=== PATIENT | male | born 1960 | race Caucasian/White ===

== ENCOUNTER 2020-09-25 18:42 | Emergency (ER) | payer OTHER, SELFPAY ==
[2020-09-25 19:02] VITALS: BP 129/81; PULSE 86; RESP 16; TEMP 37.1; O2SAT 96; BMI 32.1
--- NOTE | 2020-09-25 19:21 | ED.SKABFB ---
HPI - Skin/Abscess/Foreign Bdy General Chief complaint: Skin/Abscess/Foreign Body Stated complaint: forgien body in arm Time Seen by Provider: 09/25/20 19:21 History of Present Illness HPI narrative: Patient complains of large splinter in left forearm after carrying a large piece what which slid in his arm and give him a splinter, he is up-to-date on tetanus injection he has no numbness no weakness no tingling, no other injury this happened about an hour ago and pain is mild Related Data Allergies Allergy/AdvReac Type Severity Reaction Status Date / Time latex [LATEX] Allergy Severe SWELLING Verified 09/25/20 19:39 bacitracin [From NEOSPORIN] Allergy Unknown REDNESS Verified 09/25/20 19:39 AND SWELLING TO SCARS gramicidin D [From NEOSPORIN] Allergy Unknown REDNESS Verified 09/25/20 19:39 AND SWELLING TO SCARS polymyxin B [From NEOSPORIN] Allergy Unknown REDNESS Verified 09/25/20 19:39 AND SWELLING TO SCARS From AUGMENTIN Allergy Severe DIFFICULTY Uncoded 07/23/20 14:43 BREATHING From Augmentin Allergy Severe DIFFICULTY Uncoded 07/23/20 14:43 BREATHING augmentin Allergy Unknown sob Uncoded 05/03/19 00:00 bacitracin Allergy Unknown swelling Uncoded 05/03/19 00:00 From NEOSPORIN Allergy Unknown REDNESS Uncoded 07/23/20 14:43 AND SWELLING TO SCARS kiwi Allergy Unknown anaphylaxis Uncoded 05/03/19 00:00 neosporin Allergy Unknown swelling Uncoded 05/03/19 00:00 Review of Systems Review of Systems: No numbness weakness paresthesias, no fever no chills, no weakness no dizziness Yes all other systems are reviewed and are negative [facility] Past Medical History [facility] Narrative: No medical history no drugs or alcohol Social History Social History Smoking Status: Never smoker Use of substances other than those prescribed or required for medical reasons: No Advance Directives: No Advance Directives Information Provided: Yes Physical Exam Vital Signs: Vital Signs: Last Vital Signs Temp 98.7 F 09/25/20 19:02 Pulse 86 09/25/20 19:02 Resp 16 09/25/20 19:02 BP 129/81 09/25/20 19:02 Pulse Ox 96 09/25/20 19:02 Body Mass Index 32.1 Comfortable relaxed tearful cooperative no acute distress A&O x3 Head is normocephalic Neck is supple No respiratory distress The left forearm has a tiny puncture wound the entry point of splinter and the splinter is easily palpated just under the skin, all neurovascular intact distal tendon function normal, sensation normal distal Course Course Course Narrative: Left forearm puncture wound with easily palpated splinter is numbed with lidocaine of 1 cm incision is made and 2.5 cm splinter was easily removed 1 cm superficial laceration from the scalp all is cleansed and irrigated with normal saline and closed with Steri-Strips Discharge Plan Discharge Clinical Impression: Foreign body (FB) in soft tissue Patient Disposition: Home, Self-Care Additional Instructions: Splinter was removed You can remove Steri-Strips in 3 or 4 days Return to ER any time for redness, swelling, red stripe up arm, discharge from wound, any sign of infection or any worse condition
[2020-09-25] MEDS: Lidocaine HCl 1 % MPF 5 ML VIAL SUBCUT (20:08)
[2020-09-25] MEDS: Lidocaine HCl 1 % MPF 5 ML VIAL INFILTRATI (20:08)
== END 2020-09-25 20:18 | disposition home or self-care (01) ==
PROVIDERS: Emergency Provider Emergency Medicine; PCP Internal Medicine
DX: S50.852A Superficial foreign body of left forearm, initial encounter (principal); M79.632 Pain in left forearm; Y28.8XXA Contact with other sharp object, undetermined intent, initial encounter; Y93.9 Activity, unspecified; Y92.9 Unspecified place or not applicable; Y99.9 Unspecified external cause status
CPT/HCPCS: 25248; 99283; 99284

== ENCOUNTER 2020-12-09 15:40 | Outpatient (REF) | payer OTHER, SELFPAY | END 2020-12-09 15:41 | disposition home or self-care (01) | LOC: HO.LAB 15:40 | PROVIDERS: PCP Internal Medicine; Visit Provider Internal Medicine | DX: Z20.822 Contact with and (suspected) exposure to COVID-19 (principal) | CPT/HCPCS: 36415; C9803; U0003; U0005 ==

== ENCOUNTER 2020-12-14 06:08 | Outpatient (REF) | payer OTHER, SELFPAY | END 2020-12-14 06:09 | disposition home or self-care (01) | LOC: HO.LAB 06:08 | PROVIDERS: Visit Provider Internal Medicine | DX: Z20.822 Contact with and (suspected) exposure to COVID-19 (principal) | CPT/HCPCS: 36415; C9803; U0003; U0005 ==

== ENCOUNTER 2021-03-20 09:11 | Emergency (ER) | payer OTHER, SELFPAY ==
[2021-03-20 09:12] VITALS: BP 127/89; PULSE 84; RESP 16; TEMP 36.7; O2SAT 98; BMI 34.0
--- NOTE | 2021-03-20 09:35 | ED.WOUNDLAC ---
HPI - Wound/Laceration General Chief Complaint: Wound/Laceration Stated Complaint: HAND LACERATION Time Seen by Provider: 03/20/21 09:35 Source: patient Mode of arrival: ambulatory Limitations: no limitations History of Present Illness HPI narrative: 60 y/o male presenting with left palm laceration he sustained just prior to arrival from a jukebox checker. He immediately had pain and applied pressure. He reports minimal bleeding. Not on blood thinners. No weakness, numbness or tingling. No concern for FB. He is up to date on his tetanus shot. Onset (ago): minute(s) (30) Extremity Location: left: hand (palm) Body four view annotation: 1. superficial laceration Related Data Allergies Allergy/AdvReac Type Severity Reaction Status Date / Time latex [LATEX] Allergy Severe SWELLING Verified 09/25/20 19:39 bacitracin [From NEOSPORIN] Allergy Unknown REDNESS Verified 09/25/20 19:39 AND SWELLING TO SCARS gramicidin D [From NEOSPORIN] Allergy Unknown REDNESS Verified 09/25/20 19:39 AND SWELLING TO SCARS polymyxin B [From NEOSPORIN] Allergy Unknown REDNESS Verified 09/25/20 19:39 AND SWELLING TO SCARS From AUGMENTIN Allergy Severe DIFFICULTY Uncoded 07/23/20 14:43 BREATHING From Augmentin Allergy Severe DIFFICULTY Uncoded 07/23/20 14:43 BREATHING augmentin Allergy Unknown sob Uncoded 05/03/19 00:00 bacitracin Allergy Unknown swelling Uncoded 05/03/19 00:00 From NEOSPORIN Allergy Unknown REDNESS Uncoded 07/23/20 14:43 AND SWELLING TO SCARS kiwi Allergy Unknown anaphylaxis Uncoded 05/03/19 00:00 neosporin Allergy Unknown swelling Uncoded 05/03/19 00:00 Review of Systems Review of Systems: Constitutional: No Fever, No Chills Gastrointestinal: No Nausea, No Vomiting Musculoskeletal: No joint pain, No Myalgias Skin: + Skin Lesions, No rash Neuro: No Weakness, No Numbness Heme/Lymph: No Bruising PMFSH Past Medical History Medical History No known health problems Social History Social History Smoking Status: Never smoker Advance Directives: No Advance Directives Information Provided: Yes Physical Exam Vital Signs: Vital Signs: Last Vital Signs Temp 98.1 F 03/20/21 09:12 Pulse 84 03/20/21 09:12 Resp 16 03/20/21 09:12 BP 127/89 03/20/21 09:12 Pulse Ox 98 03/20/21 09:12 Body Mass Index 34.0 Appearance: Alert. Oriented X3. No acute distress. HEENT: normal inspection CVS: Normal heart rate and rhythm. Pulses normal. Respiratory: No respiratory distress. Skin: Skin warm and dry. Normal skin color. Normal skin turgor. No rashes. Extremities: left palm with 3 cm superficial linear laceration on proximal aspect, no active bleeding, margins are well approximated. no surrounding erythema, mild tenderness. NV intact distally. Neuro: Oriented X 3. No motor deficit. No sensory deficit. Course Course Course Narrative: 60 y/o male presenting with superficial laceration to left palm with jukebox checker just [employer]. Amenable to Dermabond and ster-strips. See procedure note. Patient counseled and is stable for d/c. No need for abx. Procedures Laceration Laceration 1: Site: hand Side (If applicable): left Size (cm): 3 Description: linear Depth: simple, single layer Pre-repair: irrigated extensively Skin layer closed with: other (Dermabond and Ster-strips) Critical Care Time Critical Care Time Critical Care Time: No Discharge Plan Discharge Clinical Impression: Laceration Patient Disposition: Home, Self-Care Instructions: Laceration (ED), Skin Adhesive Care (ED), Steristrips (ED) Additional Instructions: Do not get wound wet for 24 hours. After that you may briefly wash with soap and water then pat dry. Do not peel off glue to steri-strips, they will come off on their own usually in 1 week. Keep clean and covered. If you notice signs of infection including redness, increased pain or swelling, or drainage of pus come back to the ER for further evaluation. Take Tylenol or Motrin as needed for pain. Elevate you hand and ice as needed for pain/swelling. Interventions: ED Discharge Assessment Last Done: 03/20/21 09:45 Discharge Date/Time: 03/20/21 09:45
== END 2021-03-20 09:45 | disposition home or self-care (01) ==
PROVIDERS: Emergency Provider Emergency Medicine Emergency Medical Services; PCP Internal Medicine
DX: S61.412A Laceration without foreign body of left hand, initial encounter (principal); W27.8XXA Contact with other nonpowered hand tool, initial encounter; Y93.89 Activity, other specified; Y92.019 Unspecified place in single-family (private) house as the place of occurrence of the external cause; Y99.9 Unspecified external cause status
CPT/HCPCS: 12002; 99283; 99284

== ENCOUNTER 2021-07-30 06:13 | Outpatient (REF) | payer OTHER, SELFPAY ==
--- NOTE | ~2021-07-30 | XR_ITS ---
EXAMINATION: XR CERVICAL SPINE CLINICAL INFORMATION: Cervical neuropathy COMPARISON: Previous cervical spine x-ray October 2019 TECHNIQUE: 4 views of the cervical spine including swimmer's view were obtained. FINDINGS: Bone alignment is normal. No fracture or dislocation is seen. There is degenerative spondylosis and degenerative disc disease at C4-C5, C5-C6 and C6-C7. There is bilateral multilevel facet arthritis. Prevertebral soft tissues are normal. XR/XR cervical spine 3V IMPRESSION: Degenerative changes.
== END 2021-07-30 06:14 | disposition home or self-care (01) ==
LOC: HO.XRAY 06:13
PROVIDERS: PCP Internal Medicine; Visit Provider Internal Medicine
DX: G54.2 Cervical root disorders, not elsewhere classified (principal)
CPT/HCPCS: 72040

== ENCOUNTER → 2021-08-03 10:28 | Outpatient (BNVA) | payer OTHER, SELFPAY | PROVIDERS: PCP Internal Medicine; Referring Provider Internal Medicine; Visit Provider Surgery | DX: L29.0 Pruritus ani (principal); K64.8 Other hemorrhoids | CPT/HCPCS: 46600 ==

== ENCOUNTER 2021-08-25 08:55 | Outpatient (REF) | payer OTHER, SELFPAY ==
--- NOTE | ~2021-08-25 | US_ITS ---
EXAMINATION: US SOFT TISSUE EXTREMITY NON-VASCULAR, RIGHT CLINICAL INFORMATION: Right BKA, assess for seroma. COMPARISON: None TECHNIQUE: Ultrasound right lower extremity is targeted to the area of clinical concern. Grayscale imaging and color doppler are performed, targeted to the area of swelling anterior side near amputation. FINDINGS: The submitted images demonstrate subcutaneous edema in the area of soft tissue swelling. No focal loculated fluid collection. No hyperemia. US/US extremity nonvascular IMPRESSION: Subcutaneous edema in area of soft tissue swelling anterior right lower extremity near amputation. No focal loculated fluid collection or hyperemia. If clinically indicated, further imaging of the soft tissues could be performed with mri without and with contrast.
== END 2021-08-25 08:56 | disposition home or self-care (01) ==
LOC: HO.US 08:55
PROVIDERS: PCP Internal Medicine; Visit Provider Surgery
DX: T79.2XXA Traumatic secondary and recurrent hemorrhage and seroma, initial encounter (principal)
CPT/HCPCS: 76882

== ENCOUNTER 2021-09-16 12:49 | Emergency (ER) | payer OTHER, SELFPAY ==
[2021-09-16 13:11] VITALS: BP 135/86; PULSE 75; RESP 18; TEMP 36.8; O2SAT 95; BMI 36.9
--- NOTE | 2021-09-16 15:03 | ED.GENADULT ---
HPI - General Adult General Chief complaint: Wound/Laceration Stated complaint: finger injury Time Seen by Provider: 09/16/21 15:03 Source: patient Limitations: no limitations History of Present Illness HPI narrative: Patient presents to the ER complaining of left 4th finger pain after getting it jammed between a wheelbarrow in her shoulder. The nail was not totally remove a positive bleeding and pain since. Patient states his tetanus shot is up-to-date. Patient has no other complaints at this time. Patient states his hand is not broken does not want an x-ray at this time. Pain is 6/10 no other complaints at this time. Related Data Home Medications Medication Instructions Recorded Confirmed albuterol sulfate 90 mcg/actuation 1 puff PO Q4H PRN 08/03/21 aerosol inhaler celecoxib 200 mg capsule 200 mg PO DAILY 08/03/21 clonazepam 1 mg tablet 1 mg PO DAILY PRN 08/03/21 fluticasone 500 mcg-salmeterol 50 1 ea INHALATION BID 08/03/21 mcg/dose blistr powdr for inhalation (Aury Sommer) montelukast 10 mg tablet 10 mg PO DAILY 08/03/21 sildenafil 100 mg tablet mg PO 08/03/21 Previous Rx's Medication Instructions Recorded hydrocortisone-pramoxine 2.5 %-1 % 1 appl NE TID-QID PRN #30 g 08/03/21 rectal cream (Analpram-HC) menthol 0.44 %-zinc oxide 20.6 % 1 appl TOPICAL BID PRN #113 g 08/03/21 topical ointment (Calmoseptine) mupirocin 2 % topical ointment 1 appl TOPICAL BID #15 g 09/16/21 tramadol 50 mg tablet 50 mg PO BID PRN #10 tab 09/16/21 Allergies Allergy/AdvReac Type Severity Reaction Status Date / Time latex [LATEX] Allergy Severe SWELLING Verified 09/16/21 13:11 From Augmentin Allergy Severe DIFFICULTY Uncoded 08/03/21 10:38 BREATHING bacitracin Allergy Unknown swelling Uncoded 08/03/21 10:38 kiwi Allergy Unknown anaphylaxis Uncoded 08/03/21 10:38 Review of Systems Constitutional: Constitutional: Denies chills, Denies fever(s) and Denies headache(s) ENT: Denies headache(s) Cardiovascular: Cardiovascular: Denies chest pain and Denies dyspnea Respiratory: Respiratory: Denies dyspnea Gastrointestinal: Gastrointestinal: Denies nausea and Denies vomiting Musculoskeletal: Comments: Left 4th finger pain Neurologic: Denies headache(s) PMFSH Past Medical History Medical History No known health problems Surgical History History of prostate surgery History of right below knee amputation Family History Family History Father Prostate cancer Social History Social History Alcohol intake: current Alcohol intake frequency: holidays/special occasions only Advance Directives: No Advance Directives Information Provided: No Physical Exam Vital Signs: Vital Signs: Last Vital Signs Temp 98.2 F 09/16/21 13:11 Pulse 75 09/16/21 13:11 Resp 18 09/16/21 13:11 BP 135/86 09/16/21 13:11 Pulse Ox 95 09/16/21 13:11 Body Mass Index 36.9 vital signs have been reviewed as normal and appeared to be correct. Blood pressure normal. Heart rate normal. Respiration rate normal. Temperature normal. Oxygen saturation normal. Appearance: Alert. Oriented X3. No acute distress. Head: Normal external exam. Eyes: PERRLA. EOMI. Conjunctiva and sclera normal. Eyelids normal. ENT: Pharynx normal. Uvula midline. Moist mucous membranes. Neck: Soft full range of motion, no JVD Back: Full range of motion noted. Skin: Left 4th finger distal nail slight bleeding noted nails but is intact at this time Extremities: Positive tenderness left 4th distal finger sensations intact Neuro: Oriented X 3. No motor deficit. No sensory deficit. Reflexes normal. Course Course Course Narrative: Left 4th finger contusion Fracture Subungual hematoma Laceration Patient deformity is a small subungual hematoma noted benefit from whole nail patient does not want that at this time. Patient also does not want an x-ray at this time. Will plan to dress wound patient understands he may lose the nail. Patient states he has been reactions of bacitracin back intake Bactroban for wounds. Discharge Plan Discharge Clinical Impression: Subungual hematoma of fingernail Contusion of finger of left hand Qualifiers: Encounter type: initial encounter Finger: ring finger Damage to nail status: with damage Qualified Code(s): S60.142A - Contusion of left ring finger with damage to nail, initial encounter Patient Disposition: Home, Self-Care Instructions: Subungual Hematoma (ED), Contusion in Adults (ED) Additional Instructions: Keep wound clean and dry You may lose the nail Prescriptions: New mupirocin 2 % ointment 1 appl topical BID Qty: 15 RF: 0 tramadol 50 mg tablet 50 mg PO BID PRN (Reason: pain) Qty: 10 RF: 0 No Action celecoxib 200 mg capsule 200 mg PO DAILY RF: 0 fluticasone propion-salmeterol [Wixela Inhub] 500-50 mcg/dose blister with device 1 ea inhalation BID RF: 0 montelukast 10 mg tablet 10 mg PO DAILY RF: 0 sildenafil 100 mg tablet PO RF: 0 clonazepam 1 mg tablet 1 mg PO DAILY PRNRF: 0 albuterol sulfate 90 mcg/actuation HFA aerosol inhaler 1 puff PO Q4H PRNRF: 0 menthol-zinc oxide [Calmoseptine] 0.44-20.6 % ointment 1 appl topical BID PRN (Reason: skin irritation) Qty: 113 RF: 0 hydrocortisone-pramoxine [Analpram-HC] 2.5-1 % cream 1 appl NE TID-QID PRN (Reason: itching) Qty: 30 RF: 0
== END 2021-09-16 15:29 | disposition home or self-care (01) ==
PROVIDERS: Emergency Provider Emergency Medicine; PCP Internal Medicine
DX: S60.142A Contusion of left ring finger with damage to nail, initial encounter (principal); W23.0XXA Caught, crushed, jammed, or pinched between moving objects, initial encounter; Y93.9 Activity, unspecified; Y92.9 Unspecified place or not applicable; Y99.9 Unspecified external cause status
CPT/HCPCS: 99283

== ENCOUNTER 2021-10-25 10:19 | Outpatient (REF) | payer OTHER, SELFPAY ==
[2021-10-25 10:22] LABS: MANUAL DIFF FLAG NO
[2021-10-25 11:19] LABS: Basophils Percent Auto 0.4 % (0-2); Eosinophils Absolute Auto 0.3 X10*3/uL (0.0-0.4); Eosinophils Percent Auto 4.1 % (0-4); Hematocrit 45.5 % (42.0-52.0); Hemoglobin 14.9 g/dl (14.0-18.0); Imm Gran Abs Auto 0.02 X10*3/uL (0.00-0.03); Imm Gran Pct Auto 0.3 % (0.0-0.4); Lymphocytes Absolute Auto 2.2 X10*3/uL (1.2-4.9); Lymphocytes Percent Auto 30.2 % (20-40); Mean Corpuscular HGB Conc 32.7 g/dl (31.0-36.0); Mean Corpuscular Hemoglobin 30.3 pg (27.0-33.0); Mean Corpuscular Volume 92.5 fL (80.0-98.0); Mean Platelet Volume 10.8 fL (9.4-12.4); Monocytes Absolute Auto 0.4 X10*3/uL (0.1-1.2); Monocytes Percent Auto 5.9 % (2-11); Neutrophils Absolute Auto 4.3 x10*3/uL (2.0-8.3); Neutrophils Percent Auto 59.1 % (45-73); Platelet Count 244 X10*3/uL (160-400); Red Blood Count 4.92 X10*6/uL (4.60-5.80); Red Cell Distribution Width 12.5 % (11.0-16.0); White Blood Count 7.3 X10*3/uL (4.8-10.8)
[2021-10-25 11:23] LABS: Appearance Urine CLEAR; Color Urine YELLOW; Glucose Urine UA NEG (NEG); Leukocyte Esterase Urine NEG (NEG); Nitrite Urine NEG (NEG); Urine Blood NEG (NEG); Urine Ketones NEG (NEG); Urine Protein NEG (NEG-TRACE)
[2021-10-25 11:42] LABS: Alanine Aminotransferase 47 U/L (0-40); Albumin Level 4.1 g/dL (3.5-5.0); Alkaline Phosphatase 53 U/L (39-117); Anion Gap 10 (12-20); Aspartate Amino Transferase 35 U/L (5-37); Bilirubin Total 0.6 mg/dL (0.0-1.0); Blood Urea Nitrogen 13 mg/dL (9-16); Calcium 9.3 mg/dL (8.4-10.2); Carbon Dioxide 26 mmol/L (22-29); Chloride 107 mmol/L (96-108); Cholesterol 249 mg/dL; Estimated Glomerular Filt Rate > 60; Glucose Fasting 108 mg/dL (60-99); HDL Cholesterol 60 mg/dL; LDL Cholesterol Calculated 171 mg/dl; Potassium 4.3 mmol/L (3.3-5.1); Sodium 139 mmol/L (135-145); Total Protein 7.6 g/dL (6.5-8.0); Triglycerides 91 mg/dL
[2021-10-25 11:55] LABS: PSA,Total (Free>4and<10) 0.77 ng/mL (0.00-4.00); Vitamin D 25-OH Total 26.5 ng/mL (>30)
[2021-10-25 12:51] LABS: Reflex LDLD? No
== END 2021-10-25 10:20 | disposition home or self-care (01) ==
LOC: HO.LNP 10:19
PROVIDERS: PCP Internal Medicine; Visit Provider Internal Medicine
DX: Z00.00 Encounter for general adult medical examination without abnormal findings (principal); E55.9 Vitamin D deficiency, unspecified; N40.0 Benign prostatic hyperplasia without lower urinary tract symptoms
CPT/HCPCS: 80053; 80061; 81003; 82306; 84153; 85025

== ENCOUNTER 2022-10-27 11:10 | Outpatient (REF) | payer OTHER, SELFPAY ==
[2022-10-27 11:17] LABS: MANUAL DIFF FLAG NO
[2022-10-27 11:44] LABS: Basophils Absolute Auto 0.1 X10*3/uL (0.0-0.2); Basophils Percent Auto 0.8 % (0-2); Eosinophils Absolute Auto 0.4 X10*3/uL (0.0-0.4); Hemoglobin 14.7 g/dl (14.0-18.0); Imm Gran Abs Auto 0.02 X10*3/uL (0.00-0.03); Imm Gran Pct Auto 0.3 % (0.0-0.4); Lymphocytes Absolute Auto 2.2 X10*3/uL (1.2-4.9); Lymphocytes Percent Auto 34.3 % (20-40); Mean Corpuscular Hemoglobin 29.6 pg (27.0-33.0); Mean Corpuscular Volume 92.7 fL (80.0-98.0); Mean Platelet Volume 11.1 fL (9.4-12.4); Monocytes Absolute Auto 0.5 X10*3/uL (0.1-1.2); Monocytes Percent Auto 8.3 % (2-11); Neutrophils Absolute Auto 3.2 x10*3/uL (2.0-8.3); Neutrophils Percent Auto 50.3 % (45-73); Platelet Count 235 X10*3/uL (160-400); Red Blood Count 4.96 X10*6/uL (4.60-5.80); Red Cell Distribution Width 12.9 % (11.0-16.0); White Blood Count 6.3 X10*3/uL (4.8-10.8)
[2022-10-27 11:46] LABS: Appearance Urine Clear; Color Urine Yellow; Glucose Urine UA Negative (Negative); Leukocyte Esterase Urine Trace (Negative); Nitrite Urine Negative (Negative); UMIC TRIGGER UA YES; Urine Blood Negative (Negative); Urine Ketones Negative (Negative); Urine Protein Negative (Neg-Trace)
[2022-10-27 11:49] LABS: Bacteria Urine None Seen (None Seen); Hyaline Casts Urine 0-2 /LPF (0-2); RBC Urine 0-2 /HPF (0-2); Squamous Epithelial Cell Urine 0-2 /HPF (0-2); WBC Urine 0-5 /HPF (0-5)
[2022-10-27 12:14] LABS: Alanine Aminotransferase 36 U/L (0-40); Albumin Level 4.1 g/dL (3.5-5.0); Alkaline Phosphatase 53 U/L (39-117); Anion Gap 11 (12-20); Aspartate Amino Transferase 33 U/L (5-37); Bilirubin Total 0.6 mg/dL (0.0-1.0); Blood Urea Nitrogen 11 mg/dL (9-16); Calcium 9.1 mg/dL (8.4-10.2); Carbon Dioxide 29 mmol/L (22-29); Chloride 105 mmol/L (96-108); Cholesterol 237 mg/dL; Estimated Glomerular Filt Rate > 60; Glucose Fasting 104 mg/dL (60-99); HDL Cholesterol 54 mg/dL; LDL Cholesterol Calculated 165 mg/dl; PSA,Total (Free>4and<10) 1.08 ng/mL (0.00-4.00); Potassium 4.5 mmol/L (3.3-5.1); Sodium 140 mmol/L (135-145); Total Protein 7.2 g/dL (6.5-8.0); Triglycerides 94 mg/dL; Vitamin D 25-OH Total 29.4 ng/mL (>30)
== END 2022-10-27 11:11 | disposition home or self-care (01) ==
LOC: HO.LNP 11:10
PROVIDERS: Visit Provider Internal Medicine
DX: Z00.00 Encounter for general adult medical examination without abnormal findings (principal); Z12.5 Encounter for screening for malignant neoplasm of prostate; E78.00 Pure hypercholesterolemia, unspecified; E55.9 Vitamin D deficiency, unspecified; E78.2 Mixed hyperlipidemia
CPT/HCPCS: 80053; 80061; 81001; 82306; 84153; 85025

== ENCOUNTER 2023-02-06 07:30 | Day surgery (SDC) | payer OTHER, SELFPAY ==
--- NOTE | 2023-02-03 12:34 | HO.ANESPROP2 ---
HPI - Anesthesia Eval Consult details Narrative: 62yo M for Colonoscopy PMFSH Active Problems Active Problems: All Active Problems (Updated 09/17/21 @ 00:01 by Background Connie) Internal hemorrhoids without complication (Acute) Pruritus ani (Acute) Internal hemorrhoids (Acute) Seroma due to trauma (Acute) Past Medical History Medical History No known health problems Family History Family History Father Prostate cancer Surgical History Surgical History History of prostate surgery History of right below knee amputation Social History Social History Alcohol intake: current Alcohol intake frequency: does not drink Patient Tobacco Use Status: Former Tobacco user Are you DNR?: No Advance Directives: No Advance Directives Information Provided: Yes Nutrition Risks: No Nutritional Risk Meds Allergies Allergy/AdvReac Type Severity Reaction Status Date / Time latex [LATEX] Allergy Severe SWELLING Verified 09/16/21 13:11 From Augmentin Allergy Severe DIFFICULTY Uncoded 08/03/21 10:38 BREATHING bacitracin Allergy Unknown swelling Uncoded 08/03/21 10:38 kiwi Allergy Unknown anaphylaxis Uncoded 08/03/21 10:38 Home Medications Medication Instructions Recorded Confirmed Last Taken Type albuterol sulfate 90 mcg/actuation 1 puff PO Q4H PRN 08/03/21 Unknown History aerosol inhaler celecoxib 200 mg capsule 200 mg PO DAILY 08/03/21 01/30/23 History clonazepam 1 mg tablet 1 mg PO DAILY PRN 08/03/21 Unknown History fluticasone 500 mcg-salmeterol 50 1 ea inhalation BID 08/03/21 Unknown History mcg/dose blistr powdr for inhalation (Wixela Inhub) montelukast 10 mg tablet 10 mg PO DAILY 08/03/21 Unknown History sildenafil 100 mg tablet mg PO 08/03/21 Unknown History Exam Exam Date and Time: February 03, 2023 1234 Pertinent Lab Results Pertinent Lab Results: Laboratory Tests 10/27/22 10/27/22 Unknown Unknown WBC 6.3 Hgb 14.7 Hct 46.0 Plt Count 235 Sodium 140 Potassium 4.5 Chloride 105 Carbon Dioxide 29 BUN 11 Creatinine 0.77 Assessment and Plan Assessment Anesthesia Assessment: Chart Reviewed
[2023-02-06 07:03] VITALS: BMI 37.8
[2023-02-06 07:35] VITALS: BP 151/91; PULSE 74; RESP 20; TEMP 36.9; O2SAT 97
[2023-02-06] MEDS: Lactated Ringers 1,000 ML 100 ML IVCONT (07:58)
--- NOTE | 2023-02-06 07:58 | HO.ANESPROP2 ---
[facility] Active Problems Active Problems: All Active Problems (Updated 09/17/21 @ 00:01 by Background Piporuy) Internal hemorrhoids without complication (Acute) Pruritus ani (Acute) Internal hemorrhoids (Acute) Seroma due to trauma (Acute) asthma obesity Past Medical History Medical History No known health problems Family History Family History Father Prostate cancer Surgical History Surgical History History of prostate surgery History of right below knee amputation History of Problems with Anesthesia: No Social History Social History Alcohol intake: current Alcohol intake frequency: does not drink Patient Tobacco Use Status: Former Tobacco user Are you DNR?: No Advance Directives: No Advance Directives Information Provided: Yes Nutrition Risks: No Nutritional Risk Meds Allergies Allergy/AdvReac Type Severity Reaction Status Date / Time latex [LATEX] Allergy Severe SWELLING Verified 09/16/21 13:11 From Augmentin Allergy Severe DIFFICULTY Uncoded 08/03/21 10:38 BREATHING bacitracin Allergy Unknown swelling Uncoded 08/03/21 10:38 kiwi Allergy Unknown anaphylaxis Uncoded 08/03/21 10:38 Active Medications: Current Medications Lactated Ringer's (Lr) 1,000 mls @ 100 mls/hr IVCONT .Q10H KRISHAN Sodium Biphosphate/Sodium Phosphate (Sodium Phosphate,Rhea-Dibasic 133 Ml Enema) 133 ml TN ONCE PRN PRN Reason: Poor Colonoscopy Prep Results Home Medications Medication Instructions Recorded Confirmed Last Taken Type albuterol sulfate 90 mcg/actuation 1 puff PO Q4H PRN 08/03/21 Unknown History aerosol inhaler celecoxib 200 mg capsule 200 mg PO DAILY 08/03/21 01/30/23 History clonazepam 1 mg tablet 1 mg PO DAILY PRN 08/03/21 Unknown History fluticasone 500 mcg-salmeterol 50 1 ea inhalation BID 08/03/21 Unknown History mcg/dose blistr powdr for inhalation (Aury Inhanil) montelukast 10 mg tablet 10 mg PO DAILY 08/03/21 Unknown History sildenafil 100 mg tablet mg PO 08/03/21 Unknown History Exam Exam Date and Time: February 06, 2023 5072 Height,Weight and Vital Signs: Height 5 ft 9.5 in Weight 117.934 kg Last Vital Signs Temp 98.4 F 02/06/23 07:35 Pulse 74 02/06/23 07:35 Resp 20 02/06/23 07:35 BP 151/91 H 02/06/23 07:35 Pulse Ox 97 02/06/23 07:35 O2 Del Method Room Air 02/06/23 07:35 Airway Mallampati Class: III TM Dist: >3cm Neck ROM: Full Loose/Missing/Broken Teeth: No Heart: RRR Lungs: wheezing throughout Assessment and Plan Final Anesthetic Review History of Problems with Anesthesia: No NPO: Yes ASA Class: III Final Preanesthetic Review: Meds/Allgs Chart Reviewed, Consent Obtained/Reviewed and Anes Risks/Benef Reviewed Patient Risk: Intermediate Procedure Risk: Low Anesthetic Plan Anesthetic Plan: MAC: Disposition: Standard PACU
[2023-02-06 08:43] VITALS: PULSE 66; RESP 18; O2SAT 99
[2023-02-06 09:40] VITALS: BP 122/78; PULSE 84; RESP 18; TEMP 36.2; O2SAT 97
--- NOTE | 2023-02-06 09:43 | P.BOP_ITS ---
Brief Operative Note Date of Service: 02/06/23 Pre-op diagnosis: Screening Post-op diagnosis: other (Colon polyps) Procedure: Colonoscopy to the cecum and TI with hot snare polypectomy x 2 Surgeon: Simone Gupta Anesthesia: MAC Was an Adaptive Physical Education Specialist used for this Procedure?: No Estimated blood loss (mL): 0 Pathology: other (A, Polyp at 50cm B. Polyp at 30cm) Condition: stable Disposition: PACU
[2023-02-06 09:55] VITALS: BP 118/68; PULSE 70; RESP 16; TEMP 36.2; O2SAT 97
--- NOTE | 2023-02-06 12:03 | OP_ITS ---
DATE OF SERVICE: 02/06/2023 SURGEON: Simone Gupta MD PREOPERATIVE DIAGNOSIS: POSTOPERATIVE DIAGNOSIS: PROCEDURE PERFORMED: Colonoscopy to the cecum and terminal ileum with hot snare polypectomy x 2. ESTIMATED BLOOD LOSS: COMPLICATIONS: ANESTHESIA: Monitored anesthesia care. ASSISTANTS: SPECIMENS: PREOPERATIVE DIAGNOSES: Personal history of tubular adenomas of the colon and colorectal cancer screening. POSTOPERATIVE DIAGNOSES: Personal history of tubular adenomas of the colon and colorectal cancer screening, colon polyps, diverticulosis, and internal hemorrhoids. INDICATION: The patient presents for followup of personal history of tubular adenomas of the colon and need for colorectal cancer screening. Full consent has been obtained from him for this, including risks of bleeding and perforation. DESCRIPTION OF PROCEDURE: The patient was placed in the left lateral decubitus position. The digital rectal exam revealed no abnormalities. The Olympus video pediatric colonoscope was entered into the rectum and advanced easily to the cecum. Once in the cecum, I did identify normal appearing pouch with appendiceal orifice and a normal-appearing ileocecal valve. The terminal ileum was cannulated and appeared normal. The scope was withdrawn back in the colon. The entire cecum and ileocecal valve appeared normal. The scope was slowly withdrawn assessing all mucosal surfaces carefully. Perforation was excellent. At 50 cm and 30 cm, there were flat approximately 10 mm polyps which were each removed by hot snare polypectomy, and recovered by suction. The polypectomy sites appeared clean, without any sign of residual polyp nor bleeding. I did not visualize any other polyps, colitis, nor angiodysplasia. There was a mild amount of sigmoid diverticulosis. In the rectum, the scope was retroflexed visualizing internal hemorrhoids, but no other pathology. The rectal mucosa appeared normal. The scope was straightened and withdrawn from the patient. He tolerated the procedure well and was returned to the recovery area in stable condition. IMPRESSION: 1. Colon polyps. 2. Diverticulosis. 3. Internal hemorrhoids. PLAN: The results of the pathology will be checked. I would recommend a repeat colonoscopy in 5 years. He was advised not to use any aspirin or NSAIDS for 1 week. MD JO Bermeo/ARIANNA / [id number] [id number]
== END 2023-02-06 10:25 | disposition home or self-care (01) ==
PROVIDERS: PCP Internal Medicine; Visit Provider Internal Medicine
PROC: 0DJD8ZZ Inspection of Lower Intestinal Tract, Via Natural or Artificial Opening Endoscopic (ICD-10-PCS; CPT 45378; principal; 2023-02-06 08:40)
DX: Z12.11 Encounter for screening for malignant neoplasm of colon (principal); Z86.010 Personal history of colon polyps; K63.5 Polyp of colon; K57.30 Diverticulosis of large intestine without perforation or abscess without bleeding; K64.8 Other hemorrhoids; N40.0 Benign prostatic hyperplasia without lower urinary tract symptoms; J45.909 Unspecified asthma, uncomplicated; Z79.51 Long term (current) use of inhaled steroids; Z79.899 Other long term (current) drug therapy; Z89.511 Acquired absence of right leg below knee
CPT/HCPCS: 45385; 88305; 94640

== ENCOUNTER 2023-12-14 10:51 | Outpatient (REF) | payer OTHER, SELFPAY ==
[2023-12-14 10:55] LABS: MANUAL DIFF FLAG NO
[2023-12-14 11:00] LABS: Appearance Urine Clear; Basophils Percent Auto 0.5 % (0-2); Color Urine Yellow; Eosinophils Absolute Auto 0.2 X10*3/uL (0.0-0.4); Eosinophils Percent Auto 3.2 % (0-4); Glucose Urine UA Negative (Negative); Hematocrit 43.4 % (42.0-52.0); Hemoglobin 14.4 g/dl (14.0-18.0); Imm Gran Abs Auto 0.01 X10*3/uL (0.00-0.03); Imm Gran Pct Auto 0.2 % (0.0-0.4); Leukocyte Esterase Urine Trace (Negative); Lymphocytes Absolute Auto 2.3 X10*3/uL (1.2-4.9); Lymphocytes Percent Auto 35.2 % (20-40); Mean Corpuscular HGB Conc 33.2 g/dl (31.0-36.0); Mean Corpuscular Hemoglobin 31.6 pg (27.0-33.0); Mean Corpuscular Volume 95.4 fL (80.0-98.0); Mean Platelet Volume 11.2 fL (9.4-12.4); Monocytes Absolute Auto 0.5 X10*3/uL (0.1-1.2); Monocytes Percent Auto 6.9 % (2-11); Neutrophils Absolute Auto 3.5 x10*3/uL (2.0-8.3); Nitrite Urine Negative (Negative); PH 5.5 (5.0-9.0); Platelet Count 203 X10*3/uL (160-400); Red Blood Count 4.55 X10*6/uL (4.60-5.80); Red Cell Distribution Width 13.3 % (11.0-16.0); UMIC TRIGGER UACC YES; Urine Blood Negative (Negative); Urine Ketones Negative (Negative); Urine Protein Negative (Neg-Trace); White Blood Count 6.5 X10*3/uL (4.8-10.8)
[2023-12-14 11:03] LABS: Bacteria Urine None Seen (None Seen); Hyaline Casts Urine 0-2 /LPF (0-2); RBC Urine 0-2 /HPF (0-2); Squamous Epithelial Cell Urine 0-2 /HPF (0-2); WBC Urine 0-5 /HPF (0-5)
[2023-12-14 11:10] LABS: Alanine Aminotransferase 28 U/L (0-40); Albumin Level 3.9 g/dL (3.5-5.0); Alkaline Phosphatase 47 U/L (39-117); Anion Gap 10 (12-20); Aspartate Amino Transferase 20 U/L (5-37); Bilirubin Total 0.5 mg/dL (0.0-1.0); Blood Urea Nitrogen 14 mg/dL (9-16); Calcium 9.2 mg/dL (8.4-10.2); Carbon Dioxide 30 mmol/L (22-29); Chloride 103 mmol/L (96-108); Cholesterol 230 mg/dL (<200); Estimated Glomerular Filt Rate > 60; Glucose Fasting 92 mg/dL (60-99); HDL Cholesterol 64 mg/dL (>40); LDL Cholesterol Calculated 153 mg/dL (<100); Potassium 3.9 mmol/L (3.3-5.1); Sodium 139 mmol/L (135-145); Total Protein 7.1 g/dL (6.5-8.0); Triglycerides 67 mg/dL (<150)
[2023-12-14 11:31] LABS: PSA,Total (Free>4and<10) 0.81 ng/mL (0.00-4.00)
[2023-12-19 16:33] LABS: Vitamin D 25-OH, D2 <4 ng/mL; Vitamin D 25-OH, D3 22 ng/mL; Vitamin D 25-OH, Total 22 ng/mL (30-100)
== END 2023-12-14 10:52 | disposition home or self-care (01) ==
LOC: HO.LNP 10:51
PROVIDERS: Visit Provider Internal Medicine
DX: Z00.00 Encounter for general adult medical examination without abnormal findings (principal); Z12.5 Encounter for screening for malignant neoplasm of prostate; N40.0 Benign prostatic hyperplasia without lower urinary tract symptoms; E55.9 Vitamin D deficiency, unspecified; E78.00 Pure hypercholesterolemia, unspecified
CPT/HCPCS: 80053; 80061; 81001; 82306; 84153; 85025

== ENCOUNTER → 2024-02-22 14:29 | Outpatient (BNVA) | payer OTHER, SELFPAY | PROVIDERS: PCP Internal Medicine; Visit Provider Physician Assistant Surgical ==

== ENCOUNTER 2024-06-20 10:58 | Outpatient (REF) | payer OTHER, SELFPAY ==
[2024-06-20 11:47] LABS: Cholesterol 226 mg/dL (<200); HDL Cholesterol 57 mg/dL (>40); LDL Cholesterol Calculated 144 mg/dL (<100); Triglycerides 128 mg/dL (<150)
== END 2024-06-20 10:59 | disposition home or self-care (01) ==
LOC: HO.LNP 10:58
PROVIDERS: Visit Provider Internal Medicine
DX: E78.00 Pure hypercholesterolemia, unspecified (principal)
CPT/HCPCS: 80061

== ENCOUNTER 2024-12-17 10:55 | Outpatient (REF) | payer OTHER, SELFPAY ==
[2024-12-17 10:58] LABS: MANUAL DIFF FLAG NO
[2024-12-17 11:28] LABS: Appearance Urine Clear; Color Urine Yellow; Glucose Urine UA Negative (Negative); Leukocyte Esterase Urine Negative (Negative); Nitrite Urine Negative (Negative); Urine Blood Negative (Negative); Urine Ketones Negative (Negative); Urine Protein Negative (Neg-Trace)
[2024-12-17 11:31] LABS: Basophils Absolute Auto 0.1 X10*3/uL (0.0-0.2); Basophils Percent Auto 0.7 % (0-2); Eosinophils Absolute Auto 0.4 X10*3/uL (0.0-0.4); Eosinophils Percent Auto 5.2 % (0-4); Hematocrit 46.8 % (42.0-52.0); Hemoglobin 15.1 g/dl (14.0-18.0); Imm Gran Abs Auto 0.02 X10*3/uL (0.00-0.03); Imm Gran Pct Auto 0.3 % (0.0-0.4); Lymphocytes Absolute Auto 2.5 X10*3/uL (1.2-4.9); Lymphocytes Percent Auto 35.9 % (20-40); Mean Corpuscular HGB Conc 32.3 g/dl (31.0-36.0); Mean Corpuscular Hemoglobin 30.1 pg (27.0-33.0); Mean Corpuscular Volume 93.4 fL (80.0-98.0); Mean Platelet Volume 10.8 fL (9.4-12.4); Monocytes Absolute Auto 0.6 X10*3/uL (0.1-1.2); Neutrophils Absolute Auto 3.5 x10*3/uL (2.0-8.3); Neutrophils Percent Auto 49.9 % (45-73); Platelet Count 263 X10*3/uL (160-400); Red Blood Count 5.01 X10*6/uL (4.60-5.80); Red Cell Distribution Width 13.3 % (11.0-16.0)
[2024-12-17 11:36] LABS: Bacteria Urine None Seen (None Seen); Hyaline Casts Urine 0-2 /LPF (0-2); RBC Urine 0-2 /HPF (0-2); Squamous Epithelial Cell Urine 0-2 /HPF (0-2); WBC Urine 0-5 /HPF (0-5)
[2024-12-17 11:56] LABS: PSA,Total (Free>4and<10) 0.68 ng/mL (0.00-4.00)
[2024-12-17 11:58] LABS: Alanine Aminotransferase 50 U/L (0-40); Albumin Level 4.2 g/dL (3.5-5.0); Alkaline Phosphatase 53 U/L (39-117); Anion Gap 9 (12-20); Aspartate Amino Transferase 47 U/L (5-37); Bilirubin Total 0.7 mg/dL (0.0-1.0); Blood Urea Nitrogen 16 mg/dL (9-16); Calcium 9.3 mg/dL (8.4-10.2); Carbon Dioxide 29 mmol/L (22-29); Chloride 105 mmol/L (96-108); Cholesterol 243 mg/dL (<200); Estimated Glomerular Filt Rate > 60; Glucose Fasting 95 mg/dL (60-99); HDL Cholesterol 62 mg/dL (>40); LDL Cholesterol Calculated 160 mg/dL (<100); Potassium 4.1 mmol/L (3.3-5.1); Sodium 139 mmol/L (135-145); Total Protein 8.3 g/dL (6.5-8.0); Triglycerides 106 mg/dL (<150); Vitamin D 25-OH Total 51.9 ng/mL (>30)
--- OUTSIDE RECORDS SUMMARY | 2024-12-17 12:18 | XMS_ITS | Data Portability ---
Author Organization [facility], [facility] Address [address] [place] [address] Care Team Providers Care Campground Cleaning Attendant Name Role Phone ÁNGELA DUQUE Primary Care Provider Assessment No assessment recorded. Plan of Treatment Reminders Order Date Submit Date Provider Last Modified By Organization Details Last Modified Time Details Appointments None record ed. Lab None record ed. Referral None record ed. Procedures None record ed. Surgeries None record ed. Imaging None record ed. Medication Orders None record ed. Patient TargetsNo targets recorded. Patient InstructionsNo instructions recorded. Reason for Referral None Reported. Problems Name Problem SNOMED Code Status Onset Date Resolution Date Notes Provider Name and Address Organization Details Recorded Time No complaints 869860326 Active Status : 'A'; Not Available [facility] 4 09:25:40 Problem Notes None recorded. Procedures Surgical History Date Name Laterality Status Provider Name and Address Organization Details Recorded Time 4 Hip Kenalog 2cc Injection, L/R completed Olivier Chan PA-C [address] [facility] [address], [place], [address], [facility] 02/16/2024 09:14:19 Imaging Results None recorded. Procedure Notes None recorded. Medical Equipment None Reported. Allergies Allergen ID Allergen Name Allergen Category Reaction Reaction Severity Criticality Documentation Date Start Date Code Code System Note Provider Name and Address Organization Details Recorded Time 570795 Augmentin medicatio n Not available Not available Not available 02/16/2024 62490 2 RxNorm MANOHAR [facility] 4 08:54:45 Medications Name Sig Start Date Stop Date Status Note LastModified by Organization Details LastModified Time celecoxib 200 mg capsule TAKE 1 CAPSULE BY MOUTH EVERY DAY WITH FOOD active Not Available Not Available No t Available prednisone 10 mg tablet TAKE 4 TABS DAILY FOR 3 DAYS, 3 TABS FOR 3 DAYS, 2 TABS FOR 3 DAYS, AND 1 TAB FOR 3 DAYS WITH FOOD 02/15 completed Not Available Not Available Not Available azithromyci n 250 mg tablet TAKE 2 TABLETS BY MOUTH TODAY, THEN TAKE 1 TABLET DAILY FOR 4 DAYS DIRECTED 02/15 completed Not Available Not Available Not Available hydrocodone 5 mg-acetamin ophen 325 mg tablet TAKE 1 TABLET BY MOUTH EVERY 6 HOURS NEEDED FOR 7 DAYS 02/15 completed Not Available Not Available Not Available clonazepam 1 mg tablet TAKE 1 TABLET BY MOUTH EVERY DAY NEEDED FOR 30 DAYS 02/15 completed Not Available Not Available Not Available pimecrolimu s 1 % topical cream APPLY TO AFFECTED AREA TWICE A DAY active Not Available Not Available No t Available sildenafil 100 mg tablet TAKE 1/2 TABLET ONCE A DAY ORALLY 27 DAYS active Not Available Not Available No t Available clindamycin 1 % topical gel APPLY TO AFFECTED AREA ARMS ONCE DAILY active Not Available Not Available No t Available montelukast 10 mg tablet TAKE 1 TABLET BY MOUTH EVERY DAY IN THE EVENING active Not Available Not Available No t Available albuterol sulfate HFA 90 mcg/actuati on aerosol inhaler INHALE 1 PUFF INTO THE LUNGS EVERY 4 HOURS NEEDED 25 active Not Available Not Available No t Available fluticasone propionate 50 mcg/actuati on nasal spray,suspe nsion SPRAY 1 SPRAY INTO EACH NOSTRIL EVERY DAY active Not Available Not Available No t Available Effexor Effexor 75MG Tablet once a day 02/15 completed Statu s: 'Curr ent'; Not Available Not Available Not Available oxycodone HCl-oxycodo ne-ASA 2-4 Q4-6 HRS PRN PAIN 02/15 completed Statu s: 'Curr ent'; Not Available Not Available Not Available Wixela Inhub 500 mcg-50 mcg/dose powder for inhalation TAKE 1 PUFF BY MOUTH TWICE A DAY 90 INHALATIO N TWICE A DAY 90 DAYS active Not Available Not Available No t Available Vitals Date Recorded Body height Body mass index (BMI) Body weight Provider Name and Address Organization Details Last Updated DateTime 02/16/2024 175.26 cm 36.9 kg/m2 421201.09 g MANOHAR DAILY [facility] 02/16/2024 08:54:27 Social History None recorded. Functional Status None recorded. Mental Status None recorded. Family History Nothing Reported. Medical History No medical history recorded. Past Encounters Encounter ID Performer Location Encounter Start Date Encounter Closed Date Diagnosis/Indication Diagnosis SNOMED-CT Code Diagnosis ICD10 Code Diagnosis Note [id number] MELA Stoll [address] floor [address] [place] [address] 02/16/2024 08:48:09 02/16/2024 09:17:12 Trochanteric bursitis of left hip 2511031739 44543 M70.62 Health Concerns Section Related Observation LastModified by Organization Detai ls LastModified Time None Recorded Concern Status LastModified by Organization Details LastModified Time None Recorded Advance Directives Directive None Recorded Payers Encounter Date Sequence Insurance Name Policy Number Policy Gunn Covered Member ID Gunn Member ID Guarantor Name 02/16/[address] [place] [address] [id number] Kelechi Bustillo [id number] Kelechi Bustillo Notes Date Note Type Note Provider Name and Address Organization Details Recorded Time 02/16/2024 text/html I am seeing the patient today under the supervision of Dr. Ramon who was available but who did not see the patient. HPI:Patient is a 63-year-old male previously seen by myself about 3 months ago for left hip pain. At that time he was diagnosed with trochanteric bursitis and given a knee injection. This injection provided him with good relief for 8 weeks. Pin came back suddenly on the lateral aspect of the hip. Denies any new injuries or falls. Denies any groin pain. Currently not utilizing any medications for pain relief. Past family, medical, social history and review of systems has been reviewed, updated and is located in the patient? s chart. Examination:Well appearing 63-year-old male in no acute distress. He is alert and oriented x3. He ambulates with symmetric gait. Left hip reveals no erythema, warmth, ecchymosis, or swelling. There is tenderness to palpation over the greater trochanter. Full range of motion of the hip in all directions with no discomfort. Hip strength 5/5 against resistance in all directions. Negative ALEJANDRO test. Negative Stinchfield test. Calf is soft and nontender. Impression:Left hip trochanteric bursitis Plan:We discussed the role of conservative management including medications, physical therapy, injection. At this point the patient was to proceed with injection. Please see procedure note. The patient does have Celebrex at home from his primary care provider. I did encourage the patient to start utilizing this twice daily in the morning and at night. Also discussed with the patient that he can do home exercise program for stretching and strengthening of the muscles surrounding the left hip bursal region. They will follow up with us as scheduled. Olivier Chan PA-C [address] [facility] [address], [place], [address], [facility] 02/16/2024 09:14:41
--- OUTSIDE RECORDS SUMMARY | 2024-12-17 12:19 | XMS_ITS ---
Author Organization Gera Box MD Address [address] [place] [phone] Care Team Providers Care Senior Auditor Name Role Phone Gera Box Primary Care Provider Medications Medication SIG (Take, Route, Frequency, Duration) Notes Start Date End Date Status KlonoPIN 1 MG 1 tablet Orally Once a day for 30 days 12/02/2024 Active Encounters Encounter Location Date Provider Diagnosis Gera Box MD [address] [place] [id number] 12/02/2024 Gera Box Leg cramps R25.2 Assessments Encounter Date Diagnosis (ICD Code) Assessment Notes Treatment Notes Treatment Clinical Notes Section Notes 12/02/2024 Leg cramps (ICD-10 - R25.2) Plan Of Treatment Medication Medication Name Sig Start Date Stop Date Notes KlonoPIN 1 MG 1 tablet Orally Once a day for 30 days 12/02 Next Appt Details Provider Name:Gera moya, 12/24/2024 10:30:00 AM, [address], [address], [place], [place], [phone], Progress Notes * RISHIUlicesKelechi RDOB: [birth year] (64 yo M)Acc No.[id number]:12/02/2024 Patient:?Kelechi BUSTILLO R :1960???Age:64 Y???Sex:Male Address:[address] [place] [address] * Refills? Refill KlonoPIN Tablet, 1 MG, Orally, 30 Tablet, 1 tablet, Once a day, 30 days, Refills=0 * true * Date:? Generated for Maya galdamez/Alexandrea/Deanasmitting on:?12/17/2024 12:19 PM EST
--- OUTSIDE RECORDS SUMMARY | 2024-12-17 12:19 | XMS_ITS ---
Author Organization Gera Box MD Address [address] [place] [phone] Care Team Providers Care Sampler Radioactive Waste Name Role Phone Gera Box Primary Care Provider Allergies Allergen (clinical drug ingredient) Drug/Non Drug Allergy documented on EMR Reaction Allergy Type Onset Date Status polyglycol (uncoded) rash Allergy Active neosporin (uncoded) rash Allergy Active amoxicillin / clavulanate augmentin (uncoded) SOB Allergy Active bacitracin Bacitracin rash Drug Allergy Activ e REASON FOR VISIT tested positive for covid on Monday no fever believes he has a sinus infection, c/o fatigue, sore throat headache, productive cough, SOB,muscle pain , runny nose congestion, 1 day of diarrhea, Video [phone] Medications Medication SIG (Take, Route, Frequency, Duration) Notes Start Date End Date Status Vitamin D (Ergocalciferol) 2000 UNIT as directed Orally 12/10/2018 Not-Oriana g Celecoxib 200 MG TAKE 1 CAPSULE BY MOUTH EVERY DAY WITH FOOD for 90 Active Ketoconazole 2 % 1 application to affected area Externally Once a day 08/03/2012 Not-Taking Ventolin HFA 108 (90 Base) MCG/ACT 2 puffs as needed Inhalation every 4 hrs for 30 days 09/17/2016 Not-Taking Ipratropium-Albuterol 0.5-2.5 (3) MG/3ML 3 ml Inhalation Four times a day for 30 days 04/07/2016 Not-Taking Wixela Inhub 500-50 MCG/ACT TAKE 1 PUFF BY MOUTH TWICE A DAY 90 INHALATION TWICE A DAY 90 DAYS for 90 Active Pimecrolimus 1 % APPLY TO AFFECTED AR EA TWICE A DAY for 15 Active Albuterol Sulfate HFA 108 (90 Base) MCG/ACT INHALE 1 PUFF INTO THE LUNGS EVERY 4 HOURS NEEDED Active Montelukast Sodium 10 MG TAKE 1 TABLET B Y MOUTH EVERY DAY IN THE EVENING for 90 Active KlonoPIN 1 MG 1 tablet Orally Once a day for 30 days 04/05/2024 Active Hydrocortisone [place]els[place]-Pramoxine 2.5-1 % APPLY 1 APPLICATION EXTERNALLY 3 TIMES A DAY NEEDED FOR 30 DAYS for 30 Active Sildenafil Citrate 100 MG TAKE 1/2 TABLE T ONCE A DAY ORALLY 27 DAYS for 27 Active Ergocalciferol 50 MCG (2000 UT) 0.5 tab Orally Once a day for 30 day(s) 12/21/2023 Active Tadalafil 20 MG 1 tablet Orally Once a day as needed 08/27/2021 Active Fluticasone Propionate 50 MCG/ACT SPRAY 1 SPRAY INTO EACH NOSTRIL EVERY DAY for 90 Active Mupirocin Calcium 2 % 1 application Externally Three times a day for 10 day(s) 06/16/2020 Active Calmoseptine 0.44-20.6 % as directed Ext ernally once a day as needed for 30 days 05/02/2022 Active Triamcinolone Acetonide 0.1 % 1 application Externally Once a day for 30 days 11/03/2022 Active Vital Signs Height 69 in 11/08/2024 Weight 255 lbs 11/08/2024 BMI 37.65 kg/m2 11/08/2024 weight at home is 255 BP not taken no temp Encounters Encounter Location Date Provider Diagnosis Gera Box MD [address] [place] [address] Drive [address] [place] [id number] 11/08/2024 Gera Box COVID-19 U07.1 Assessments Encounter Date Diagnosis (ICD Code) Assessment Notes Treatment Notes Treatment Clinical Notes Section Notes 11/08/2024 COVID-19 (ICD-10 - U07.1) is gradually improving. too late for the paxlovid. if not better nest week to call Plan Of Treatment Treatment Notes Assessment Notes COVID-19 is gradually improvi ng. too late for the paxlovid. if not better nest week to call Next Appt Details Provider Name:Gera Acosta ier, 12/24/2024 10:30:00 AM, [address] [place] [address], [address], [place], [place], [phone], Progress Notes * Kelechi BUSTILLO RDOB: [birth year] (64 yo M)Acc No.[id number]:11/08/2024 Patient:?Kelechi Bustillo R Provider:?Gera Box MD :1960???Age:64 Y???Sex:Male Doug e:11/08/2024 Address:[address] [place], [place] [phone] Subjective: * Chief Complaints: * ???tested positive for covid on Monday no fever believes he has a sinus infectionc/o fatigue, sore throat headache, productive cough, SOB,muscle pain , runny nose congestion, 1 day of diarrheaVideo [phone] * HPI: ???Symptom(s):?Telehealth?Location of provider rendering services:?[address] [place] [address], [address],?Location of patient:?at address listed in demographics for today's visit,?Patient identification confirmed using:?Name, , SSN, Insurance information,?Telehealth method:?Video conference where patient is visible to the provider of care,?Consent:?Patient verbally consented to treatment, Patient verbally consented to billing insurance company, Patient informed of any privacy concerns related to method of visit.? patient is a 64 yo male video telehealth visit tested positive for covid on monday, covid sx's started one week ago.. still with sinus discharge and lot of phlegm, fatigue and sore throat. * ROS:?General/Constitutional:?Admits?Chills.?Admits?Fatigue.?Denies?Fever.?Admits?Headache.?ENT:?Patient denies?decreased sense of smell , any loss of taste?.?Admits?Blocked ear(s).?Admits?Sinus pain.?Admits?Sore throat.?Respiratory:?Admits?Cough.?Denies?Shortness of breath at rest.?Denies?Shortness of breath with exertion.?Admits?Sputum production.?Gastrointestinal:?Admits?Diarrhea,?c/o diarrhea x 1 day.?Denies?Nausea.?Musculoskeletal:?Patient denies?muscle aches.?Peripheral Vascular:?Patient denies?red and blue toes.? * Medical History:? * Surgical History:? * Hospitalization/Major Diagno stic Procedure:? * Medications:?TakingCalmosept ine 0.44-20.6 % Ointment as directed Externally once a day as neededMupirocin Calcium 2 % Cream 1 application Externally Three times a dayTriamcinolone Acetonide 0.1 % Cream 1 application Externally Once a dayTadalafil 20 MG Tablet 1 tablet Orally Once a day as neededErgocalciferol 50 MCG (2000 UT) Tablet 0.5 tab Orally Once a daySildenafil Citrate 100 MG Tablet TAKE 1/2 TABLET ONCE A DAY ORALLY 27 DAYS Hydrocortisone Iglesia-Pramoxine 2.5-1 % Cream APPLY 1 APPLICATION EXTERNALLY 3 TIMES A DAY NEEDED FOR 30 DAYS Fluticasone Propionate 50 MCG/ACT Suspension SPRAY 1 SPRAY INTO EACH NOSTRIL EVERY DAY KlonoPIN 1 MG Tablet 1 tablet Orally Once a dayMontelukast Sodium 10 MG Tablet TAKE 1 TABLET BY MOUTH EVERY DAY IN THE EVENING Albuterol Sulfate HFA 108 (90 Base) MCG/ACT Aerosol Solution INHALE 1 PUFF INTO THE LUNGS EVERY 4 HOURS NEEDED Pimecrolimus 1 % Cream APPLY TO AFFECTED AREA TWICE A DAY Wixela Inhub 500-50 MCG/ACT Aerosol Powder Breath Activated TAKE 1 PUFF BY MOUTH TWICE A DAY 90 INHALATION TWICE A DAY 90 DAYS Celecoxib 200 MG Capsule TAKE 1 CAPSULE BY MOUTH EVERY DAY WITH FOOD Taking Calmoseptine 0.44-20.6 % Ointment as directed Externally once a day as neededTaking Mupirocin Calcium 2 % Cream 1 application Externally Three times a dayTaking Triamcinolone Acetonide 0.1 % Cream 1 application Externally Once a dayTaking Tadalafil 20 MG Tablet 1 tablet Orally Once a day as neededTaking Ergocalciferol 50 MCG (2000 UT) Tablet 0.5 tab Orally Once a dayTaking Sildenafil Citrate 100 MG Tablet TAKE 1/2 TABLET ONCE A DAY ORALLY 27 DAYS Taking Hydrocortisone Iglesia-Pramoxine 2.5-1 % Cream APPLY 1 APPLICATION EXTERNALLY 3 TIMES A DAY NEEDED FOR 30 DAYS Taking Fluticasone Propionate 50 MCG/ACT Suspension SPRAY 1 SPRAY INTO EACH NOSTRIL EVERY DAY Taking KlonoPIN 1 MG Tablet 1 tablet Orally Once a dayTaking Montelukast Sodium 10 MG Tablet TAKE 1 TABLET BY MOUTH EVERY DAY IN THE EVENING Taking Albuterol Sulfate HFA 108 (90 Base) MCG/ACT Aerosol Solution INHALE 1 PUFF INTO THE LUNGS EVERY 4 HOURS NEEDED Taking Pimecrolimus 1 % Cream APPLY TO AFFECTED AREA TWICE A DAY Taking Wixela Inhub 500-50 MCG/ACT Aerosol Powder Breath Activated TAKE 1 PUFF BY MOUTH TWICE A DAY 90 INHALATION TWICE A DAY 90 DAYS Taking Celecoxib 200 MG Capsule TAKE 1 CAPSULE BY MOUTH EVERY DAY WITH FOOD Not-Taking/PRNVitamin D (Ergocalciferol) 2000 UNIT Capsule as directed Orally Ipratropium-Albuterol 0.5-2.5 (3) MG/3ML Solution 3 ml Inhalation Four times a dayVentolin HFA 108 (90 Base) MCG/ACT Aerosol Solution 2 puffs as needed Inhalation every 4 hrsKetoconazole 2 % Cream 1 application to affected area Externally Once a dayMedication List reviewed and reconciled with the patientNot-Taking/PRN Vitamin D (Ergocalciferol) 2000 UNIT Capsule as directed Orally Not-Taking/PRN Ipratropium-Albuterol 0.5-2.5 (3) MG/3ML Solution 3 ml Inhalation Four times a dayNot-Taking/PRN Ventolin HFA 108 (90 Base) MCG/ACT Aerosol Solution 2 puffs as needed Inhalation every 4 hrsNot-Taking/PRN Ketoconazole 2 % Cream 1 application to affected area Externally Once a dayMedication List reviewed and reconciled with the patient * Allergies:?augmentin: SOBneo sporin: rashBacitracin: rashpolyglycol: rashyes[Allergies Verified] Objective: * Vitals:?Ht: 69, Wt:255, BMI: 37.65 weight at home is 255 BP not taken no temp. * Examination: ???General Examination: ?GENERAL APPEARANCE:?alert, well hydrated, in no distress.? Assessment: * Assessment: 1.?COVID-19 - U07.1 (Primary )? Plan: * Treatment: * Procedure Codes:? * * Sign off status: Completed true * Provider:?Gera Box MD Date:?0 11/08/2024 Generated for Maya galdamez/Alexandrea/eTransmitting on:?12/17/2024 12:19 PM EST History and Physical Notes * HPI (History of Present Illness) Category Sub-Category Detail Notes Category Not es Symptom(s) Telehealth Location of [facility] rendering services:: [address], [address] patient is a 64 yo male video telehealth visit tested positive for covid on monday, covid sx's started one week ago.. still with sinus discharge and lot of phlegm, fatigue and sore throat Location of patient:: at address listed in demographics for today's visit Patient identification confirmed using:: Name, , SSN, Insurance information Telehealth method:: Video co nference where patient is visible to the provider of care Consent:: Patient verbally c onsented to treatment, Patient verbally consented to billing insurance company, Patient informed of any privacy concerns related to method of visit Examination Category Sub-Category Detail Notes Category Not es General Examination GENERAL APPEARANCE: alert, w ell hydrated, in no distress
--- OUTSIDE RECORDS SUMMARY | 2024-12-17 12:19 | XMS_ITS ---
Author Organization Gera Box MD Address [address] [place], [place] [phone] Care Team Providers Care Staple Laster Name Role Phone Gera Box Primary Care Provider Results Component Value Reference Range Notes Complete Blood Count Auto Di ff (Not yet reviewed by provider) Interpretation: Performing Lab:[facility], [address] [place] [phone] Notes/Report: White Blood Count 7.0 4.8-10.8 X10*3/uL Red Blood Count 5.01 4.60-5.80 X10*6/uL Hemoglobin 15.1 14.0-18.0 g/dl Hematocrit 46.8 42.0-52.0 % Mean Corpuscular Volume 93.4 80.0-98.0 fL Mean Corpuscular Hemoglobin 30.1 27.0-33.0 pg Mean Corpuscular HGB Conc 32.3 31.0-36.0 g/dl Red Cell Distribution Width 13.3 11.0-16.0 % Platelet Count 263 160-400 X10*3/uL Mean Platelet Volume 10.8 9.4-12.4 fL Neutrophils Percent Auto 49.9 45-73 % Imm Gran Pct Auto 0.3 0.0-0.4 % Lymphocytes Percent Auto 35.9 20-40 % Monocytes Percent Auto 8.0 2-11 % Eosinophils Percent Auto 5.2 0-4 % Basophils Percent Auto 0.7 0-2 % NRBC Pct Auto 0.0 0.0-0.2 /100WBC Neutrophils Absolute Auto 3.5 2.0-8.3 x10*3/u L Imm Gran Abs Auto 0.02 0.00-0.03 X10*3/uL Lymphocytes Absolute Auto 2.5 1.2-4.9 X10*3/u L Monocytes Absolute Auto 0.6 0.1-1.2 X10*3/uL Eosinophils Absolute Auto 0.4 0.0-0.4 X10*3/u L Basophils Absolute Auto 0.1 0.0-0.2 X10*3/uL NRBC Abs Auto 0.000 0.0-0.012 X10*3/uL PSA,Total (Free>4and<10) (No t yet reviewed by provider) Interpretation: Performing Lab:[address] [phone] Notes/Report: PSA,Total (Free>4and<10) 0.68 0.00-4.00 ng/mL A Free PSA was not performed: The percentage of Free PSA can be used to enhance the differentiation of prostate cancer from benign prostatic disease in subjects whose PSA levels are between 4.0 and 10.0 ng/mL. For subjects whose PSA levels are below 4.0 or above 10.0 ng/mL, the risk of prostate cancer is determined on the basis of the PSA alone. Therefore the % Free PSA is recommended only for those subjects whose PSA levels are between 4.0 and 10.0 ng/mL. PSA methodology: De La Cruz Alinity i Chemiluminescent Microparticle Immunoassay (CMIA) UA ClnCatch+Micro w/rflx Cul t (Not yet reviewed by provider) Interpretation: Performing Lab:[address] [phone] Notes/Report: Urine, Clean Catch Color Urine Yellow Appearance Urine Clear PH 6.0 5.0-9.0 Glucose Urine UA Negative Negative mg/dL Urine Blood Negative Negative Specific [place] - Urine 1.020 1.005-1.025 Urine Protein Negative Neg-Trace mg/dL Urine Ketones Negative Negative mg/dL Nitrite Urine Negative Negative Leukocyte Esterase Urine Negative Negative RBC Urine 0-2 0-2 /HPF WBC Urine 0-5 0-5 /HPF Squamous Epithelial Cell Urine 0-2 0-2 /HPF Bacteria Urine None Seen None Seen Hyaline Casts Urine 0-2 0-2 /LPF REASON FOR VISIT FASTING LABS Encounters Encounter Location Date Provider Diagnosis Gera Box MD [address] [place], [place] [phone] 12/17/2024 Gera Box Blood tests for rout ine general physical examination Z00.00 ; Pure hypercholesterolemia E78.00 and Vitamin D deficiency E55.9 Assessments Encounter Date Diagnosis (ICD Code) Assessment Notes Treatment Notes Treatment Clinical Notes Section Notes 12/17/2024 Blood tests for rout ine general physical examination (ICD-10 - Z00.00) 12/17/2024 Pure hypercholesterolemia (ICD-10 - E78.00) 12/17/2024 Vitamin D deficiency (ICD-10 - E55.9) Plan Of Treatment Pending Test Test Name Order Date Complete Blood Count Auto Diff Comprehensive [place]. Panel Fast Lipid Panel 12/17/2024 PSA,Total (Free>4and<10) 12/17/2024 Vitamin D 25-OH Total 12/17/2024 UA ClnCatch+Micro w/rflx Cult 12/17/2024 Next Appt Details Provider Name:Gera Acosta ier, 12/24/2024 10:30:00 AM, [address], [address], [place], [place], [phone], Progress Notes * Kelechi BUSTILLO RDOB: [birth year] (64 yo M)Acc No.[id number]:12/17/2024 Progress Note Patient:?RISHI Kelechi R Provider:?Gera Box MD :1960???Age:64 Y???Sex:Male Doug e:12/17/2024 Address:[address] [place] [address], [facility] [id number] Subjective: * Chief Complaints: * ???1. FASTING LABS. * Medical History:? Objective: * Vitals:? Assessment: * Assessment: 1.?Blood tests for routine g eneral physical examination - Z00.00 (Primary)???2.?Pure hypercholesterolemia - E78.00???3.?Vitamin D deficiency - E55.9??? Plan: * Treatment: 2.?Pure hypercholesterolemia ?LAB: Complete Blood Count Auto Diff (Collection Date & Time - 12/17/2024 07:15 AM) ?LAB: Comprehensive [place]. Panel Fast ?LAB: Lipid Panel ?LAB: PSA,Total (Free>4and<10) (Collection Date & Time - 12/17/2024 07:15 AM) ?LAB: Vitamin D 25-OH Total ?LAB: UA ClnCatch+Micro w/rflx Cult (Collection Date & Time - 12/17/2024 07:15 AM) 3.?Vitamin D deficiency?LAB: Complete Blood Count Auto Diff (Collection Date & Time - 12/17/2024 07:15 AM) ?LAB: Comprehensive [place]. Panel Fast ?LAB: Lipid Panel ?LAB: PSA,Total (Free>4and<10) (Collection Date & Time - 12/17/2024 07:15 AM) ?LAB: Vitamin D 25-OH Total ?LAB: UA ClnCatch+Micro w/rflx Cult (Collection Date & Time - 12/17/2024 07:15 AM) * Procedure Codes:?25732 VENIP UNCT, ROUTINE* * * The named appointment provid er may or may not be the originator of this progress note, and it is not deemed complete until electronically signed by the appointment provider. Sign off status: Pending * Provider:?Gera Box MD Date:?0 12/17/2024 Generated for Maya galdamez/Alexandrea/eTransmitting on:?12/17/2024 12:19 PM EST
--- OUTSIDE RECORDS SUMMARY | 2024-12-17 12:19 | XMS_ITS | Patient Health Record ---
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 Name Role Phone Gera Box MD Primary Care Provider Simone Centeno [phone] ALLERGIES Allergen (clinical drug ingredient) Drug/Non Drug Allergy documented on EMR Reaction Allergy Type Onset Date Status Propylene Glycol Unknown Drug Allergy Active Neosporin (uncoded) Unknown Allergy Active amoxicillin / clavulanate Augmentin (uncoded) Unknown Allergy Active REASON FOR REFERRAL No Information MEDICATIONS Medication SIG (Take, Route, Frequency, Duration) Notes Start Date End Date Status Sildenafil Citrate 100 MG Oral for 27 Active Advair Diskus Active Singulair Active ProAir HFA Active Ventolin HFA Active Ibuprofen Active CeleBREX Active IMMUNIZATIONS Vaccine Route Administration Date Status Comme nts Influenza Unknown 07/07/2022 Administered SOCIAL HISTORY Sex Assigned At : Social History Observation Description Sex Assigned At Unknown PROBLEMS Problem Type ICD Code Onset Dates Problem Status W/U Status Risk SNOMED Code Notes Problem Encounter for screening for malignant neoplasm of colon (Z12.11) Active confirmed 962836714 Problem History of adenomatous polyp of colon (Z86.010) Active confirmed 631899296 Problem Preprocedural examination (Z01.818) Active confirmed 334579167 PLAN OF TREATMENT Pending Test Test Name Order Date Pathology 02/06/2023 Future Test Test Name Order Date COLONOSCOPY 03/21/2012 COLONOSCOPY 07/12/2017 COLONOSCOPY 12/16/2022 Insurance Providers Payer Name Payer Address Payer Phone Subscriber Number Group Number Insured Name Patient Relationship to Insured Coverage Start Date Coverage End Date [facility] [address] [facility] [id number] [id number] FANI BLACKWELL Self - patient is the insured MEDICAL (GENERAL) HISTORY Medical History History ICD Code Upper endoscopy on 12-20-07--small HH, no esophagitis, no Solorio's Asthma Denies [place],DM,CVA,renal disease BPH Colonoscopy 05/2012--1 tubular adenoma, d iverticulosis Colonoscopy 09/2017 was negative Surgical History Surgery Date(Month/Year) Appendectomy 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
== END 2024-12-17 10:56 | disposition home or self-care (01) ==
LOC: HO.LNP 10:55
PROVIDERS: Visit Provider Internal Medicine
DX: Z00.00 Encounter for general adult medical examination without abnormal findings (principal); E78.00 Pure hypercholesterolemia, unspecified; E55.9 Vitamin D deficiency, unspecified; Z12.5 Encounter for screening for malignant neoplasm of prostate
CPT/HCPCS: 80053; 80061; 81001; 82306; 84153; 85025